=== PATIENT | male | born 1970 | race Caucasian/White ===

== ENCOUNTER → 2017-01-05 | Outpatient (CLI) | payer SELFPAY ==
--- NOTE | 2017-01-05 14:50 | CT ---
HISTORY: Screening. Cardiac calcium scoring Technique: Multiple axial images of the chest were obtained on a [address] from the aortic arch to the base of the heart with retrospective cardiac gating. Noncontrast evaluation of the heart was performed for calcium scoring with prospective gating. 3D reconstructions and vessel a nalysis were performed on a vital imaging workstation. Dose reduction techniques including Automate d Exposure Control (AEC) and adjustment of mA and kV were utilized. Findings: A total calcium score of 27 is observed. The score results in mild likelihood of coronary events gi laila the age and sex matched cohort analysis. Evaluation of the coronary arterial system demonstrates no significant disease of the left main, lef t circumflex, or LAD. In addition, in no significant disease of the right coronary artery can be id entified. Extracardiac findings: No pathologically enlarged lymphadenopathy can be observed. The aortic arch is unremarkable in its appearance with normal vascular configuration. No significant pericardial effusion can be identifie d. The visualized portions of the lung parenchyma are unremarkable. No lytic or blastic lesions ca n be identified within the visualized bony thorax. The visualized portions of the abdomen demonstra te normal perfusion patterns of the spleen and liver. IMPRESSION: Total calcium score of 27 that results in a mild likelihood of coronary events given the age and sex matched cohort analysis. See detailed report for further findings. Reported By:
== END ==
LOC: RAD 13:43
PROVIDERS: ATTEND Family Medicine
DX: Z13.6 Encounter for screening for cardiovascular disorders (principal)